=== PATIENT | male | born 1995 | race Hispanic/Latino ===

== ENCOUNTER 2018-03-14 19:25 | Emergency (ER) | payer OTHER ==
[2018-03-14 19:40] VITALS: BP 138/82; PULSE 77; RESP 20; TEMP 98.4; O2SAT 99
--- NOTE | 2018-03-14 19:53 | ED PDOC ---
HPI: Psych/Substance Abuse Chief Complaint (Provider): Anxiety History Per: Patient History/Exam Limitations: no limitations Onset/Duration Of Symptoms: Days Current Symptoms Are (Timing): Still Present Suicide/Self Injury Attempted (Context): None Associated Symptoms: Anxiety. denies: Suicidal Thoughts Additional Complaint(s): Prem Vasques is a 22 year old male with a past medical history of anxiety and asthma who is presenting to the ED for evaluation of anxiety and panic attack. Patient states that over the last hour he has been experiencing a panic attack and his anxiety has been worsening over the last month. He reports that he has been working with a therapist who recommended he come to the ED for evaluation. He states that he currently not taking any medications and admits to smoking marijuana yesterday. Patient denies any suicidal or homicidal ideation as well as auditory or visual hallucinations. PMD: Andrea Eastman [place] Therapist: AISHWARYA Rushing <Radha Wei - Last Filed: 03/14/18 20:37> <Dawood Yousif - Last Filed: 03/16/18 06:48> Time Seen by Provider: 03/14/18 19:34 Chief Complaint (Nursing): Anxiety Past Medical History Reviewed: Historical Data, Nursing Documentation, Vital Signs Vital Signs: Last Vital Signs Temp 98.4 F 03/14/18 19:38 Pulse 77 03/14/18 19:38 Resp 20 03/14/18 19:38 BP 138/82 03/14/18 19:38 Pulse Ox 99 03/14/18 19:38 - Medical History PMH: Anxiety, Asthma - Surgical History Surgical History: No Surg Hx - Family History Family History: States: Unknown Family Hx - Social History Current smoker - smoking cessation education provided: No Alcohol: None Drugs: Cannabis <Radha Wei - Last Filed: 03/14/18 20:37> Vital Signs: Last Vital Signs Temp 98.4 F 03/14/18 19:38 Pulse 77 03/14/18 19:38 Resp 20 03/14/18 19:38 BP 138/82 03/14/18 19:38 Pulse Ox 99 03/14/18 20:41 <Dawood Yousif - Last Filed: 03/16/18 06:48> - Home Medications Home Medications: Ambulatory Orders Medication Instructions Recorded busPIRone [Buspar] 5 mg PO BID #6 tab 03/14/18 - Allergies Allergies/Adverse Reactions: Allergies Allergy/AdvReac Type Severity Reaction Status Date / Time No Known Allergies Allergy Verified 03/14/18 19:37 Review of Systems ROS Statement: Except As Marked, All Systems Reviewed And Found Negative Psych: Positive for: Anxiety. Negative for: Suicidal ideation, Other (homicidal ideation, hallucinations) <SanjuanaRadha rush - Last Filed: 03/14/18 20:37> Physical Exam - Reviewed Nursing Documentation Reviewed: Yes Vital Signs Reviewed: Yes - Physical Exam Comments: GENERAL APPEARANCE: Patient is awake, alert, oriented x 3, in no acute distress. SKIN: Warm, dry; (-) cyanosis NECK: Supple, FROM HEART AND CARDIOVASCULAR: (-) irregularity CHEST AND RESPIRATORY: (-) rales, (-) rhonchi, (-) wheezes; breath sounds equal bilaterally. Respirations even and nonlabored, speaking in full sentences. ABDOMEN: Soft, (-) distention, (-) tenderness, (-) guarding. NEURO AND PSYCH: Mental status as above. Affect: calm and cooperative. Pupils equal and reactive; EOMI; (-) facial asymmetry. Gait: steady. Speech: clear. <SanjuanaMichelleRadha K - Last Filed: 03/14/18 20:37> - ECG O2 Sat by Pulse Oximetry: 99 (RA) Pulse Ox Interpretation: Normal <Michelle Weibeth Gail - Last Filed: 03/14/18 20:37> Medical Decision Making Medical Decision Making: Time: 19:50 Impression: Anxiety Plan: --Crisis Evaluation 20:05 Crisis at bedside. 2024 Per crisis evaluation, patient to be discharged with the diagnosis of anxiety per Dr Panda. Crisis requesting patient to be sent home with short supply of Buspar. On re-evaluation, patient offers no additional complaints. On exam, patient remains AAOx3, in no acute distress. Lungs clear to auscultation, cardiac RRR, repeat neuro exam shows no focal findings. VSS, stable for discharge. Lab/Diagnostic results d/w the patient in great detail. Diagnosis of anxiety d/w the patient. Based on history, exam and diagnostic results, plan will be for outpatient follow up with PMD/psych. Patient instructed to follow-up with pmd / referral provided / the clinic in 1- 2 days without fail. Advised to take medication as prescribed. Return to the emergency room at any time for any new or worsening symptoms. Patient states he fully agrees with and understands discharge instructions. States that he agrees with the plan and disposition. Verbalized and repeated discharge instructions and plan. I have given the patient opportunity to ask any additional questions. Scribe Attestation: Documented by Teri Duvall, acting as a scribe for Radha Wei PA-C. Provider Scribe Attestation: All medical record entries made by the Scribe were at my direction and personally dictated by me. I have reviewed the chart and agree that the record accurately reflects my personal performance of the history, physical exam, medical decision making, and the department course for this patient. I have also personally directed, reviewed, and agree with the discharge instructions and disposition. <Radha Wei - Last Filed: 03/14/18 20:37> Disposition - Patient ED Disposition Is Patient to be Admitted: No Counseled Patient/Family Regarding: Studies Performed, Diagnosis, Need For Followup, Rx Given - Disposition Disposition: Routine/Home Disposition Time: 20:29 - POA Present On Arrival: None <Radha Wei - Last Filed: 03/14/18 20:37> <Dawood Yousif - Last Filed: 03/16/18 06:48> - Clinical Impression Clinical Impression: Anxiety - Disposition Referrals: [facility] [Outside] Condition: STABLE Additional Instructions: The emergency medical care you received today was directed at your acute symptoms. If you were prescribed any medication, please fill it and take as directed. It may take several days for your symptoms to resolve. Return to the Emergency Department if your symptoms worsen, do not improve, or if you have any other problems. Please contact your doctor in 2 days for re-evaluation and follow up / or call one of the physicians/clinics you have been referred to that are listed on the Patient Visit Information form that is included in your discharge packet. Bring any paperwork you were given at discharge with you along with any medications you are taking to your follow up visit. Our treatment cannot replace ongoing medical care by a primary care provider (PCP) outside of the emergency department. Prescriptions: busPIRone [Buspar] 5 mg PO BID #6 tab Instructions: Anxiety, Adult (DC) Forms: [employer] (Indonesian) Print Language: BELARUSIAN - PA / SAND SIFTER / Resident Statement MD/DO has reviewed & agrees with the documentation as recorded. <Dawood Yousif - Last Filed: 03/16/18 06:48>
== END 2018-03-14 20:49 | disposition home or self-care (01) ==
LOC: H.ER 19:25
DX: F41.9 Anxiety disorder, unspecified (principal); J45.909 Unspecified asthma, uncomplicated; Z00.8 Encounter for other general examination; F12.10 Cannabis abuse, uncomplicated